=== PATIENT | male | born 1935 | race Caucasian/White ===

== ENCOUNTER 2017-02-13 13:53 | Emergency (ER) | payer OTHER, MEDICAID ==
[~2017-02-13 13:53] MED LIST: ARICEPT10 MG PO; CELEXA20 MG PO; CLONAZEPAM0.5 MG PO; GOOD SENSE ASPI81 M3 PO; LANTUS100 U/ML SQ; LOTENSIN10 MG PO; METFORMIN HCL500 MG PO; NAMENDA10 M2 PO; OMEPRAZOLE DR20 M1 PO; SEROQUEL50 M1 PO; TAMSULOSIN HCL0.4 MG PO
[2017-02-13 14:53] LABS: BASOPHIL % 0.3 % (0-2); PLATELET COUNT 192 x10^3mcL (130-400)
[2017-02-13 15:03] LABS: CALCIUM 8.4 mg/dL (8.5-10.1); CARBON DIOXIDE 27.5 mmol/L (21-32); CHLORIDE SERUM 106 mmol/L (98-107); CREATININE SERUM 1.1 mg/dL (0.7-1.3); GLUCOSE SERUM 170 mg/dL (74-106); SODIUM SERUM 142 mmol/L (136-145)
[2017-02-13 15:15] LABS: ALKALINE PHOSPHATASE 131 U/L (46-116); ALT/SGPT 22 U/L (16-63); AST/SGOT 13 U/L (15-37); BILIRUBIN TOTAL 0.5 mg/dL (0.20-1.00); CHOLESTEROL 184 mg/dL (<200); HDL CHOLESTEROL 42 mg/dL (40-60); LIPASE 722 IU/L (73-393); T4(THYROXINE) 6.6 ug/dL (4.7-13.3)
[2017-02-13 15:19] LABS: ALBUMIN 3.3 g/dL (3.4-5.0); AMYLASE 234 U/L (25-115)
[2017-02-13 16:34] VITALS: BP 131/74
== END 2017-02-13 16:34 | disposition home or self-care (01) ==
LOC: ED 13:53
PROVIDERS: Emergency Medicine
DX: G93.89 Other specified disorders of brain (principal); I10 Essential (primary) hypertension; S06.1X0A Traumatic cerebral edema without loss of consciousness, initial encounter; E11.9 Type 2 diabetes mellitus without complications; E46 Unspecified protein-calorie malnutrition; G20 Parkinson's disease; F02.80 Dementia in other diseases classified elsewhere, unspecified severity, without behavioral disturbance, psychotic disturbance, mood disturbance, and anxiety; D29.1 Benign neoplasm of prostate; Z66 Do not resuscitate; W18.12XA Fall from or off toilet with subsequent striking against object, initial encounter; Y93.89 Activity, other specified; Y92.002 Bathroom of unspecified non-institutional (private) residence as the place of occurrence of the external cause; Y99.8 Other external cause status
CPT/HCPCS: 80307; 83880; J8540; Q0092; Q0162